=== PATIENT | female | born 1985 | race Caucasian/White ===

== ENCOUNTER 2017-11-06 23:30 | Emergency (ER) | payer OTHER ==
[2017-11-07] MEDS ORDERED: ACETAMINOPHEN 325 MG TAB PO ONE (01:15)
[2017-11-07] MEDS ORDERED: IBUPROFEN 600 MG TAB PO ONE (01:15)
--- NOTE | 2017-11-07 01:22 | EDPHY ---
General - History Smoking Status: Current some day smoker Time Seen by Provider: 11/07/17 01:06 Narrative: CHIEF COMPLAINT: Head injury HISTORY OF PRESENT ILLNESS: Patient complains of head injury. She report being struck in the head by falling snow/ice from the roof of a hotel in [place]. This happened approximately 2 hours ago. No LOC. Superficial abrasion to right scalp. Mild to moderate headache. No vomiting. No neck pain. No visual disturbance. No injury elsewhere. headache is steady but improving. No medications taken. No difficulty ambulating. No sensory or motor complaints. Tetanus is up to date. No other associated complaints or modifying factors. REVIEW OF SYSTEMS: Ten systems reviewed and are negative unless otherwise noted in the HPI PCP: None locally SPECIALISTS: None PAST MEDICAL HISTORY: Denies any medical diagnoses PAST SURGICAL HISTORY: No recent surgery SOCIAL HISTORY: None smoker. Occasional alcohol. FAMILY HISTORY: Non-contributory EXAMINATION General Appearance: Alert, no distress Head: normocephalic, superficial abrasion to right scalp, just posterior to frontal region as below. No griffith sign. No raccoon eyes Eyes: Pupils equal and round, no conjunctival pallor or injection. EOM symmetric ENT, Mouth: Mucous membranes moist Neck: Normal inspection, supple, non-tender. no crepitus. no meningeal signs Respiratory: Lungs are clear to auscultation Cardiovascular: Regular rate and rhythm. no murmur Gastrointestinal: Abdomen is soft and nontender Back: non-tender, no bony abnormalities Neurological: GCS 15, CN II-XII intact. A&O, nonfocal, normal gait. normal finger to nose. no pronator drift. Skin: Warm and dry, no rash. superficial subcentimeter laceration to right scalp. no separation of wound margins. no foreign body. no bleeding. Extremities: Nontender, no pedal edema Psychiatric: Mood and affect normal DIFFERENTIAL DIAGNOSES: Including but not limited to intracranial hemorrhage, closed head injury, concussion, contusion MDM: 1:15 a.m. Superficial head injury from falling ice and snow from a roof. She has no signs of basilar skull fracture. She has a fully normal neuro examination. She is ambulatory with no difficulty. She has not vomited. Superficial abrasion to the forehead does not warrant any suture repair. I have ordered Tylenol and ibuprofen for. We discussed head injury precautions over the next 4 hr. We discussed strict ED precautions for worsening symptoms, sudden change in headache, vomiting, bruising around the eyes or behind the ears. I do not feel she warrants any CT scan at this time, additionally she is negative by [place] head rules. I do feel she is stable for discharge home at this time. SUPERVISION: This patient was independently evaluated without direct involvement of or examination by the attending physician. (Reno Guerra) PHYSICIAN DOCUMENTATION: The patient was evaluated and managed by the Physician Floor Winder. My co- signature indicates that I have reviewed this chart and I agree with the findings and plan of care as documented. I am the secondary supervising physician. (Magdalena Purcell) - Objective Vital Signs: Initial Vital Signs Temperature (C) 36.7 C 11/06/17 23:36 Heart Rate 89 11/06/17 23:36 Respiratory Rate 15 11/06/17 23:36 Blood Pressure 118/79 11/06/17 23:36 O2 Sat (%) 97 11/06/17 23:36 O2 Delivery Mode Room Air Allergies/Adverse Reactions: No Known Allergies Allergy (Unverified 11/06/17 23:40) Home Medications: Medication Instructions Recorded NK [No Known Home Meds] 11/06/17 Medications Given: Discontinued Medications Acetaminophen (Tylenol) 650 mg PO EDNOW ONE Stop: 11/07/17 01:16 Last Admin: 11/07/17 01:47 Dose: Not Given Ibuprofen (Motrin) 600 mg PO EDNOW ONE Stop: 11/07/17 01:16 Last Admin: 11/07/17 01:42 Dose: 600 mg Departure - Departure Disposition: Home, Routine, Self-Care Clinical Impression: Head injury Qualifiers: Encounter type: initial encounter Qualified Code(s): S09.90XA - Unspecified injury of head, initial encounter Scalp abrasion Qualifiers: Encounter type: initial encounter Qualified Code(s): S00.01XA - Abrasion of scalp, initial encounter Condition: Good Instructions: Concussion (ED), Head Injury (ED) Additional Instructions: 1. Ibuprofen and Tylenol as discussed as needed 2. Head injury precautions as discussed 3. Contact the provided on-call primary care physician to establish local physician as needed 4. ED precautions for sudden change in headache, worsening headache, vomiting, bruising around the eyes or behind the ears Referrals: Paola Leary DO [Doctor of Osteopathy] - As per Instructions
[2017-11-07 01:49] VITALS: BP 114/72; PULSE 82; RESP 18; TEMP 97.9; O2SAT 96
== END 2017-11-07 01:49 | disposition home or self-care (01) ==
DX: S00.01XA Abrasion of scalp, initial encounter (principal); F17.200 Nicotine dependence, unspecified, uncomplicated; W18.09XA Striking against other object with subsequent fall, initial encounter; Y92.59 Other trade areas as the place of occurrence of the external cause

== ENCOUNTER 2017-11-13 18:57 | Emergency (ER) | payer OTHER ==
[2017-11-13 19:09] VITALS: BP 114/82; PULSE 95; RESP 18; TEMP 98.1; O2SAT 98
--- NOTE | 2017-11-13 19:19 | EDPHY ---
H & P Time Seen by Provider: 11/13/17 19:02 HPI/ROS: CHIEF COMPLAINT: Trouble concentrating HISTORY OF PRESENT ILLNESS: Patient was here on 11/06/16 after getting hit in the head by piece of falling ice. She was diagnosed with a concussion and presents today with continued symptoms. She feels like she is having more irritability and emotional lability, also having difficulty concentrating, and not feeling right. She does not have vertigo or spinning or severe headache or vomiting. She has mild headache which starts in her right eye radiates to the back of her head. She has little bit of neck pain worse with movement. REVIEW OF SYSTEMS: Eye: no change in vision ENT: no sore throat or ear symptoms Cardiac: no chest pain or syncope Pulmonary: no cough or SOB Abdomen: no vomiting, diarrhea, abdominal pain Musculoskeletal: No lower back pain Skin: no rash Neuro: No difficulty with walking. Constitutional: no fever, feels"hyper aware" : no urinary symptoms A comprehensive 10 point review of systems is otherwise negative aside from elements mentioned in the history of present illness. PAST MEDICAL HISTORY: Negative Social history: Works managing a business General Appearance: Alert and conversant, cooperative. Eyes: No scleral icterus. Pupils equal round reactive and extraocular motion intact, no nystagmus ENT, Mouth: Normal mucous membranes. No hemotympanum. Respiratory: Normal respiratory effort, breath sounds equal, lungs are clear to auscultation. Cardiovascular: Regular rate and rhythm. Gastrointestinal: Abdomen is soft and non tender. Neurological: Alert, face symmetric, normal motor and sensory in extremities. Romberg negative, [id number] normal bilaterally, fluent speech. Ambulatory without ataxia. Skin: Warm and dry, no rashes. Musculoskeletal: No cervical thoracic or lumbar spine tenderness to palpation. Psychiatric: Not agitated. Emergency Department course/MDM: Patient presents with persistent concussion symptoms. I feel the risk for intracranial hemorrhage or skull fracture is low. Epidural or subdural risk is low. She is encouraged to follow-up next week with referral physician if she continues to have symptoms. Smoking Status: Current some day smoker Constitutional: Initial Vital Signs Temperature (C) 36.7 C 11/13/17 19:07 Heart Rate 95 11/13/17 19:07 Respiratory Rate 18 11/13/17 19:07 Blood Pressure 114/82 H 11/13/17 19:07 O2 Sat (%) 98 03/01/18 19:07 O2 Delivery Mode Room Air Allergies/Adverse Reactions: No Known Allergies Allergy (Unverified 11/06/17 23:40) Home Medications: Medication Instructions Recorded NK [No Known Home Meds] 11/06/17 MDM/Departure - MDM Differential Diagnosis: Differential diagnosis considered for head injury including but not limited to concussion, skull fracture, intraparenchymal contusion, subarachnoid, subdural and epidural hematoma. - Depart Disposition: Home, Routine, Self-Care Clinical Impression: Concussion Qualifiers: Encounter type: subsequent encounter Loss of consciousness presence/duration: without LOC Qualified Code(s): S06.0X0D - Concussion without loss of consciousness, subsequent encounter Condition: Good Instructions: Concussion (ED), Post Concussion Syndrome (ED) Additional Instructions: If you still have symptoms next week please follow-up with referral neurologist Dr. Fernández, or primary care doctor Sophia. Referrals: Mir Fernández DO [Doctor of Osteopathy] - As per Instructions Bruna Cortes MD [Medical Doctor] - As per Instructions
== END 2017-11-13 19:26 | disposition home or self-care (01) ==
DX: S06.0X0D Concussion without loss of consciousness, subsequent encounter (principal); F17.200 Nicotine dependence, unspecified, uncomplicated; W22.8XXD Striking against or struck by other objects, subsequent encounter